=== PATIENT | female | born 1950 | race Caucasian/White ===

== ENCOUNTER 2017-11-13 11:47 | Emergency (ER) | payer OTHER ==
[2017-11-13 11:58] VITALS: BP 160/81
--- NOTE | 2017-11-13 12:25 | EDM.PDOCBH ---
ED HPI GENERAL MEDICAL PROBLEM - General Chief Complaint: Behavioral/Psych Stated Complaint: SHOCK FROM SONS Time Seen by Provider: 11/13/17 12:00 Source of Information: Reports: Patient, Family History Limitations: Reports: Altered Mental Status - History of Present Illness INITIAL COMMENTS - FREE TEXT/NARRATIVE: Patient is a 67-year-old female who was brought into the E.D. by her family because they are concerned she is having a stroke. Patient's son committed suicide this morning approx. 2 hrs ago. Patient was notified and since then has been repeating questions unaware of what happened to son. She has had no focal neurological deficits. Ambulated to the E.D. with no issues. She has history of anxiety and HTN. Anxiety started after mother . Patient has discontinued all anxiety medications. Do not have Unknown medications she is taking at this time. She has no history of CVA or heart issues. Their is a family history of dementia mother in her 70's. PCP is from [facility]. - Related Data Allergies Allergy/AdvReac Type Severity Reaction Status Date / Time morphine Allergy Other Verified 11/13/17 11:54 povidone-iodine Allergy Other Verified 11/13/17 11:54 [From Betadine] soap [From Betadine] Allergy Other Verified 11/13/17 11:54 Ngtjnvz-Qxb-Tuu Reductase Allergy Other Verified 11/13/17 11:54 Inhibitor Home Meds: Home Meds LORazepam [Ativan] 0.5 mg PO Q8H PRN #21 tab 11/13/17 [Rx] ED ROS GENERAL - Review of Systems Review Of Systems: See Below HEENT: Reports: No Symptoms Respiratory: Reports: No Symptoms Cardiovascular: Reports: No Symptoms GI/Abdominal: Reports: No Symptoms Neurological: Reports: Confusion. Denies: Dizziness, Headache, Numbness, Syncope, Tingling, Trouble Speaking, Change in Speech Psychiatric: Reports: Confusion ED EXAM, BEHAVIORAL HEALTH - Physical Exam Exam: See Below Exam Limited By: Altered Mental Status General Appearance: Alert, WD/WN, Other (Tearful) Eye Exam: Bilateral Eye: EOMI, PERRL Ears: Hearing Grossly Normal Nose: Normal Inspection, Normal Mucosa, No Blood Throat/Mouth: Normal Inspection, Normal Oropharynx, Normal Voice, No Airway Compromise Head: Atraumatic, Normocephalic Neck: Normal Inspection, Supple, Non-Tender, Full Range of Motion Respiratory/Chest: No Respiratory Distress, Lungs Clear, Normal Breath Sounds, No Accessory Muscle Use Cardiovascular: Normal Peripheral Pulses, Regular Rate, Rhythm GI/Abdominal: Normal Bowel Sounds, Soft, Non-Tender, No Organomegaly Extremities: Normal Inspection, Non-Tender, No Pedal Edema Neurological: Alert, CN II-XII Intact, Normal Cognition, No Motor/Sensory Deficits, Oriented x 3 Psychiatric: Alert, Normal Cognition, Oriented, Tearful, Other (Patient repeatedly asking questions about son. ). No: Threatening Behavior Skin Exam: Warm, Dry, Intact, Normal color COURSE, BEHAVIORAL HEALTH COMP - Course Vital Signs: Last Vital Signs Temp 98.1 F 11/13/17 11:55 Pulse 73 11/13/17 11:55 Resp BP 160/81 H 11/13/17 11:55 Pulse Ox 96 11/13/17 11:55 Orders, Labs, Meds: Active Orders 24 hr Category Date Time Status EKG Documentation Completion [RC] STAT Care 11/13/17 12:14 Active Laboratory Tests 11/13/17 11/13/17 Range/Units 12:40 12:40 WBC 10.99 H (3.98-10.04) K/mm3 RBC 4.98 (3.98-5.22) M/mm3 Hgb 14.3 (11.2-15.7) gm/L Hct 42.0 (34.1-44.9) % MCV 84.3 (79.4-94.8) fl MCH 28.7 (25.6-32.2) pg MCHC 34.0 (32.2-35.5) g/dl RDW Std Deviation 40.3 (36.4-46.3) fL Plt Count 322 (182-369) K/mm3 MPV 9.1 L (9.4-12.3) fl Neut % (Auto) 81.8 H (34.0-71.1) % Lymph % (Auto) 12.2 L (19.3-51.7) % [place] % (Auto) 5.5 (4.7-12.5) % Eos % (Auto) 0.2 L (0.7-5.8) Baso % (Auto) 0.1 (0.1-1.2) % Neut # (Auto) 9.00 H (1.56-6.13) K/mm3 Lymph # (Auto) 1.34 (1.18-3.74) K/mm3 Charlotte # (Auto) 0.60 H (0.24-0.36) K/mm3 Eos # (Auto) 0.02 L (0.04-0.36) K/mm3 Baso # (Auto) 0.01 (0.01-0.08) K/mm3 Sodium 143 (136-145) mEq/L Potassium 4.1 (3.5-5.1) mEq/L Chloride 107 (98-107) mEq/L Carbon Dioxide 24 (21-32) mEq/L Anion Gap 16.1 H (5-15) BUN 16 (7-18) mg/dL Creatinine 0.9 (0.55-1.02) mg/dL Est Cr Clr Drug Dosing 57.37 mL/min Estimated GFR (MDRD) > 60 (>60) mL/min BUN/Creatinine Ratio 17.8 (14-18) Glucose 118 H (80-115) mg/dL Calcium 9.0 (8.5-10.1) mg/dL Total Bilirubin 0.7 (0.2-1.0) mg/dL AST 28 (15-37) U/L ALT 30 (14-59) U/L Alkaline Phosphatase 64 (46-116) U/L Total Protein 6.8 (6.4-8.2) g/dl Albumin 3.4 (3.4-5.0) g/dl Globulin 3.4 gm/dL Albumin/Globulin Ratio 1.0 (1-2) TSH 3rd Generation 0.642 (0.358-3.74) uIU/mL Medications Discontinued Medications Generic Name Dose Route Start Last Admin Trade Name Freq PRN Reason Stop Dose Admin Lorazepam 0.5 mg 11/13/17 12:28 11/13/17 12:53 Ativan PO 11/13/17 12:29 0.5 mg ONETIME ONE Administration Lorazepam 1 mg 11/13/17 14:33 11/13/17 14:53 Ativan PO 11/13/17 14:34 1 mg ONETIME ONE Administration Re-Assessment/Re-Exam: Family concerned about a stroke. Will obtain CBC, chem 14, urine drug tox, TSH, UA, EKG, and head CT without contrast. [address] Carter associate professor of automation telepsych provider. Suggested administering Ativan. This may relax the patient improving the catatonic state. Normal response to stressful event as such. Labs reviewed: CBC essentially normal. Chemistry panel did not revealing concerning findings. TSH 0.6.2. CT of the head impression: Incidental findings. Nothing acute is identified on noncontrast head CT exam. 1315 Reassessment, per family members present patient appears to be more settled down. Still asking repetitive questions in relation to her son. Will give it some time to see how she does here. She will have family members present at home to monitor. 1434 Per nursing staff patient slept for 5 minutes. Has eaten and gone to the bathroom with no difficulties. NO ua obtained. Per family patients mentation is improving. Still has moments when she reverts back to questioning what happen to her son. Will administer additional 1mg PO of ativan and get patient ready for discharge. Discharge instructions as documented. Departure - Departure Time of Disposition: 14:36 Disposition: Home, Self-Care 01 Condition: Good Clinical Impression: Grief at loss of child, Catatonic reaction - Discharge Information Prescriptions: LORazepam [Ativan] 0.5 mg PO Q8H PRN #21 tab PRN Reason: Anxiety Instructions: Complicated Grieving, Adjustment Disorder, Adult Referrals: Trevon Cortés Jr, MD [Primary Care Provider] - Forms: ED Department Discharge Additional Instructions: Take lorazepam 0.5 mg 3 times a day as needed for increasing anxiety. Do not drive today nor while taking the lorazepam. Please follow up with your primary care provider this week or the following week to discuss options for treatment of anxiety and depression if symptoms persist. The grieving pattern is different for everybody and I cannot determine what the next few days will bring. Please return to the E.D. if you should have any new or worsening symptoms. - My Orders Last 24 Hours: My Active Orders 11/13/17 12:14 EKG Documentation Completion [RC] STAT - Assessment/Plan Last 24 Hours: My Active Orders 11/13/17 12:14 EKG Documentation Completion [RC] STAT
[2017-11-13] MEDS ORDERED: LORazepam 0.5 MG Tab PO ONE (12:28)
--- NOTE | 2017-11-13 12:54 | CT ---
Head CT Technique: Multiple axial sections through the brain were obtained. Intravenous contrast was not utilized. Comparison: No previous intracranial imaging. Findings: Slightly prominent cisterna magna is seen which is a normal variant. Ventricles along with basal cisterns and sulci over the convexities are mildly prominent. No abnormal parenchymal densities are seen. No evidence of intracranial hemorrhage. No midline shift or mass effect is seen. Bone window settings were reviewed which show no discrete calvarial abnormality. Visualized sinuses are clear. Impression: 1. Incidental findings. Nothing acute is identified on noncontrast head CT exam. Diagnostic code #2
[2017-11-13] MEDS ORDERED: LORazepam 1 MG Tab PO ONE (14:33)
== END 2017-11-13 15:05 | disposition home or self-care (01) ==
LOC: JD.ED 11:47
DX: F43.21 Adjustment disorder with depressed mood (principal); I10 Essential (primary) hypertension; F41.9 Anxiety disorder, unspecified; Z88.5 Allergy status to narcotic agent; Z88.8 Allergy status to other drugs, medicaments and biological substances; Z91.09 Other allergy status, other than to drugs and biological substances
CPT/HCPCS: 36415; 70450; 80053; 84443; 85025; 93005; 99284; A9270

== ENCOUNTER 2018-09-16 14:28 | Emergency (ER) | payer OTHER, MEDICARE ==
[2018-09-16 14:54] VITALS: BP 177/84
[2018-09-16] MEDS ORDERED: LORazepam 2 MG/ML SDV IM ONE (15:26)
--- NOTE | 2018-09-16 15:32 | EDM.PDOCBH ---
ED HPI GENERAL MEDICAL PROBLEM - General Chief Complaint: Neurological Problem Stated Complaint: LOSS OF MEMORY Time Seen by Provider: 09/16/18 15:05 Source of Information: Reports: Patient, RN Notes Reviewed History Limitations: Reports: No Limitations - History of Present Illness INITIAL COMMENTS - FREE TEXT/NARRATIVE: Patient is a 68 year old female who presents with family members to the ED for the evaluation of acute memory loss. The son and stated that she awoke fine this AM and around 2pm she started having acute memory loss and was questioning where things come from; i.e towels on the floor. She did not have any unilateral symptoms like weakness or speech impairment. It was divulged that the patient's son killed himself in October 2017 and she presented to the ED in shock with some of the same symptoms. She has been on antidepressants but they do not have a current med list. - Related Data Allergies Allergy/AdvReac Type Severity Reaction Status Date / Time morphine Allergy Other Verified 09/16/18 16:12 povidone-iodine Allergy Other Verified 09/16/18 16:12 [From Betadine] soap [From Betadine] Allergy Other Verified 09/16/18 16:12 Stngocd-Fec-Wpn Reductase Allergy Other Verified 09/16/18 16:12 Inhibitor Home Meds: Home Meds LORazepam [Ativan] 0.5 mg PO Q8H PRN #21 tab 11/13/17 [Rx] LORazepam [Ativan] 0.5 mg PO Q6H PRN #24 tablet 09/16/18 [Rx] Past Medical History - Past Health History Medical/Surgical History: Denies Medical/Surgical History HEENT History: Reports: Impaired Vision Other HEENT History: wears glasses Psychiatric History: Reports: Other (See Below) Other Psychiatric History: grief Social & Family History - Tobacco Use Smoking Status *Q: Never Smoker - Caffeine Use Caffeine Use: Reports: Coffee - Recreational Drug Use Recreational Drug Use: No ED ROS GENERAL - Review of Systems Review Of Systems: See Below Constitutional: Reports: No Symptoms HEENT: Reports: No Symptoms Respiratory: Reports: No Symptoms Cardiovascular: Reports: No Symptoms Endocrine: Reports: No Symptoms GI/Abdominal: Reports: No Symptoms : Reports: No Symptoms Musculoskeletal: Reports: No Symptoms Skin: Reports: No Symptoms Neurological: Reports: Other (memory loss). Denies: Confusion, Headache, Numbness, Tingling, Trouble Speaking, Difficulty Walking, Weakness, Change in Speech Psychiatric: Reports: No Symptoms Hematologic/Lymphatic: Reports: No Symptoms Immunologic: Reports: No Symptoms ED EXAM, BEHAVIORAL HEALTH - Physical Exam Exam: See Below Exam Limited By: No Limitations General Appearance: Alert, WD/WN, No Apparent Distress (patient is crying at bedside and throughout exam, although not uncontrollably.) Ears: Normal External Exam Nose: Normal Inspection Throat/Mouth: Normal Inspection Head: Atraumatic, Normocephalic Neck: Normal Inspection Respiratory/Chest: No Respiratory Distress, Lungs Clear, Normal Breath Sounds, No Accessory Muscle Use, Chest Non-Tender Cardiovascular: Normal Peripheral Pulses, Regular Rate, Rhythm, No Murmur GI/Abdominal: Normal Bowel Sounds, Soft, Non-Tender, No Distention Extremities: Normal Inspection Neurological: Alert (she is alert to place and person), Normal Mood/Affect, Normal Cognition, Normal Gait, Normal Reflexes, No Motor/Sensory Deficits, Disoriented to Time (she did not know what day it was or Date) Psychiatric: Alert, Normal Affect, Normal Cognition, Normal Mood, Oriented, Tearful Skin Exam: Warm, Dry, Intact COURSE, BEHAVIORAL HEALTH COMP - Course Vital Signs: Last Vital Signs Temp 97.4 F 09/16/18 14:47 Pulse 73 09/16/18 14:47 Resp 20 09/16/18 14:47 BP 177/84 H 09/16/18 14:47 Pulse Ox 95 09/16/18 14:47 Orders, Labs, Meds: Medications Discontinued Medications Generic Name Dose Route Start Last Admin Trade Name Jaysonq PRN Reason Stop Dose Admin Lorazepam 0.5 mg 09/16/18 15:26 09/16/18 15:36 Ativan IM 09/16/18 15:27 0.5 mg ONETIME ONE Administration Re-Assessment/Re-Exam: 09/16/2018 15:30 Pt presents to the ED for acute memory loss. Her neuro exam is benign, the patient is quite tearful and has become increasingly aware of more of the things she was forgetting. It appears that this may be an acute stress reaction to the realization of a lost loved one during the holiday season. 0.5mg IM ativan has been ordered to see if this helps calm her nerves. 09/16/2018 16:14 Pt reassessed at bedside, she is feeling much better, will provide her with script for 0.5 mg ativan to take as needed for feelings of increased anxiety. Departure - Departure Time of Disposition: 16:16 Disposition: Home, Self-Care 01 Condition: Fair Clinical Impression: Acute stress reaction - Discharge Information *PRESCRIPTION DRUG MONITORING PROGRAM REVIEWED*: No *COPY OF PRESCRIPTION DRUG MONITORING REPORT IN PATIENT NENA: No Prescriptions: LORazepam [Ativan] 0.5 mg PO Q6H PRN #24 tablet PRN Reason: Anxiety Instructions: Panic Attack, [id number] Referrals: Trevon Cortés Jr, MD [Primary Care Provider] - Forms: ED Department Discharge Additional Instructions: You have been evaluated in the ED for episodes of memory loss. Your neurological exam was unremarkable. You are not having a stroke at this ED visit. This is likely to be due to an acute stress reaction to the loss of a loved one during the holidays. You have been provided a script for 0.5 mg Ativan, please take 1 tab by mouth as needed for feelings of anxiety. Please follow up with your primary care provider for further management of anxiety medications. Please return to the ED if your symptoms should change or worsen.
== END 2018-09-16 16:23 | disposition home or self-care (01) ==
LOC: JD.ED 14:28
DX: F43.0 Acute stress reaction (principal); Z88.5 Allergy status to narcotic agent; Z91.09 Other allergy status, other than to drugs and biological substances
CPT/HCPCS: 96372; 99283; J2060

== ENCOUNTER 2021-05-10 09:25 | Day surgery (SDC) | payer MEDICARE, BC ==
[~2021-05-10 09:25] MED LIST: Cyclobenzaprine 10 MG Tab PO PRN; Lactated Ringers 1,000 ML IV SCH; Lidocaine 1%/Sod Bicarbonate in NS 8.4% 1 ML Syringe IDERM PRN; Sodium Chloride 0.9% 10 ML Syringe FLUSH PRN
[2021-05-10] MEDS ORDERED: Scopolamine 1.5 MG Transdermal Patch TOP ONE (10:56)
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
[2021-05-10] MEDS ORDERED: Bupivacaine 0.25% 10 ML SDV ONE ×2 (11:44→12:22)
[2021-05-10] MEDS ORDERED: Midazolam 1 MG/ML 2 ML SDV ONE (12:02)
[2021-05-10] MEDS ORDERED: Propofol 200 MG/20 ML SDV ONE ×2 (12:02→12:36)
[2021-05-10] MEDS ORDERED: fentaNYL 250 MCG/5 ML SDV ONE (12:02)
[2021-05-10] MEDS ORDERED: ceFAZolin 1 GM Vial ONE (12:07)
[2021-05-10] MEDS ORDERED: Lidocaine 1% 4 ML ONE ×2 (12:07→12:46)
[2021-05-10] MEDS ORDERED: Dexamethasone 4 MG/ML 5 ML MDV ONE (12:34)
[2021-05-10] MEDS ORDERED: Ondansetron 4 MG/2 ML SDV ONE (12:34)
[2021-05-10] MEDS ORDERED: Lactated Ringers 1,000 ML ONE (12:59)
[2021-05-10] MEDS ORDERED: fentaNYL 100 MCG/2 ML SDV IVPUSH PRN (13:19)
[2021-05-10] MEDS ORDERED: Ondansetron 4 MG/2 ML SDV IVPUSH PRN ×2 (13:19→16:42)
[2021-05-10] MEDS ORDERED: HYDROmorphone 0.5 MG/0.5 ML Syringe IVPUSH PRN (13:19)
[2021-05-10] MEDS ORDERED: Ketorolac 15 MG/ML SDV ONE (13:58)
[2021-05-10] MEDS ORDERED: Meperidine 50 MG/ML Vial IVPUSH STA (14:02)
--- NOTE | 2021-05-10 14:03 | CR ---
Right ankle: 7 fluoroscopic spot views were obtained of the right ankle. Plate and screws are seen within the distal fibula. Medial malleolus fracture is noted which shows fixation with 2 screws. Fluoroscopy time given is 14.9 seconds. Impression: 1. Procedural study as described above. Diagnostic code #2
--- NOTE | 2021-05-10 14:08 | PCM.POSTAN ---
POST ANESTHESIA ASSESSMENT - MENTAL STATUS Mental Status: Alert, Oriented - VITAL SIGNS Vital Signs: Last Vital Signs Temp 97.0 F 05/10/21 13:50 Pulse 79 05/10/21 13:50 Resp 17 05/10/21 13:50 BP 151/76 H 05/10/21 13:50 Pulse Ox 95 05/10/21 14:05 - RESPIRATORY Respiratory Status: Respiratory Rate WNL, Airway Patent, O2 Saturation Stable - CARDIOVASCULAR CV Status: Pulse Rate WNL, Blood Pressure Stable - GASTROINTESTINAL GI Status: No Symptoms - PAIN Pain Score: 0 - POST OP HYDRATION Hydration Status: Adequate & Stable
--- NOTE | 2021-05-10 14:48 | PCM48HPAN ---
Post Anesthesia Note - EVALUATION WITHIN 48HRS OF ANESTHETIC Vital Signs in Normal Range: Yes Patient Participated in Evaluation: Yes Respiratory Function Stable: Yes Airway Patent: Yes Cardiovascular Function Stable: Yes Hydration Status Stable: Yes Pain Control Satisfactory: Yes Nausea and Vomiting Control Satisfactory: Yes Mental Status Recovered: Yes Vital Signs: Last Vital Signs Temp 98.2 F 05/10/21 14:35 Pulse 68 05/10/21 14:35 Resp 16 05/10/21 14:35 BP 166/93 H 05/10/21 14:35 Pulse Ox 96 05/10/21 14:35 - COMMENTS/OBSERVATIONS Free Text/Narrative:: complains of some pain. denies nausea.
[2021-05-10] MEDS ORDERED: Acetaminophen/HYDROcodone 325-5 MG Tab PO PRN (14:51)
[2021-05-10] MEDS ORDERED: Ketorolac 15 MG/ML SDV IVPUSH STA (16:07)
[2021-05-10] MEDS ORDERED: Acetaminophen/HYDROcodone 325-5 MG Tab PO STA (16:07)
[2021-05-10] MEDS ORDERED: Naloxone 0.4 MG/ML SDV IVPUSH PRN (16:42)
[2021-05-10] MEDS: Acetaminophen/HYDROcodone 325-5 MG Tab PO PRN (21:59)
[2021-05-11] MEDS: Cyclobenzaprine 10 MG Tab PO PRN ×2 (00:44→10:05)
[2021-05-11] MEDS ORDERED: Levothyroxine 88 MCG Tab PO SCH (06:00)
[2021-05-11] MEDS: Acetaminophen/HYDROcodone 325-5 MG Tab PO PRN (07:03)
[2021-05-11] MEDS ORDERED: Losartan 50 MG Tab PO SCH (09:00)
[2021-05-11] MEDS ORDERED: Ezetimibe 10 MG Tab PO SCH (09:00)
[2021-05-11] MEDS ORDERED: Metoprolol Succinate 25 MG Tab.ER PO SCH (09:00)
[2021-05-11 09:47] VITALS: BP 122/47; PULSE 72
--- NOTE | 2021-05-25 06:57 | PCM.OPNOTE ---
- General Post-Op/Procedure Note Date of Surgery/Procedure: 05/10/21 Operative Procedure(s): open reduction internal fixation right bimalleolar ankle fracture Pre Op Diagnosis: right bimalleolar ankle fracture Post-Op Diagnosis: Same Anesthesia Technique: General LMA, Local Primary Surgeon: Abran Greene Anesthesia Provider: Lizabeth Burrell Roguer: Merline Fierro in mLs: 5 Complications: None Condition: Good
--- NOTE | 2021-05-25 10:36 | OR ---
DATE OF OPERATION: 05/10/2021 SURGEON: Abran Greene MD OPERATION PERFORMED: Open reduction, internal fixation right bimalleolar ankle fracture. PREOPERATIVE DIAGNOSIS: Right bimalleolar ankle fracture. POSTOPERATIVE DIAGNOSIS: Right bimalleolar ankle fracture. ANESTHESIA: General LMA with local and ankle block. ANESTHESIA PROVIDER: Lizabeth Burrell CRNA. FACILITY SERVICE MANAGER: Merline Fierro PA-C. ESTIMATED BLOOD LOSS: 5 mL. COMPLICATIONS: None. CONDITION: Stable. DESCRIPTION OF PROCEDURE: The patient was identified in the preoperative holding area. Proper site was marked and identified by the surgeon. The patient was taken back to the operating theater where after adequate anesthesia, the patient's right lower extremity was sterilely prepped and draped in the usual sterile fashion. OR time-out was performed. The patient received 2 g of IV Ancef. Right lower extremity was then exsanguinated, inflated to 225 mmHg. A standard lateral incision was made. This was taken down to the fracture site. Fracture site was curetted and rongeured of all fracture hematoma and adequately irrigated with saline. [id number] reduction clamp was used for reduction of the fracture. A 3.5 lag screw was then used from anterior to posterior and had adequate fixation of the fracture site. A Ashley distal fibular locking plate was then placed under direct C-arm fluoroscopy, shown to be adequate position. A cortical screw was then placed proximally and distally to the fracture to hold it in place and then locking and nonlocking screws were then placed proximally and distally to the fracture site making sure to obtain 6 cortices. At this time, attention was turned medially. Incision was made medially. Neurovascular bundle was then retracted anteriorly. Fracture site was identified and all fracture hematoma as well as periosteum was taken out of the fracture site. [id number] reduction clamp was then used for reduction of the fracture. Two guide pins for 4.0 cannulated screws were placed. It was found to be anatomically reduced on AP and lateral views and mortise views under C-arm fluoroscopy. The drill was then used and two 4-0 cannulated screws were placed medially. We had anatomic reduction of the mortise. Stress view showed no widening of the ankle mortise. The previous pins were removed. Adequate saline was irrigated through both wounds. 2-0 Vicryl was used subcutaneously and slick were used for closure of the skin. The patient was placed in a sterile soft dressing and posterior slab splint, and sent to the PACU in stable condition. WAYLON /[id number]
== END 2021-05-11 10:45 | disposition home or self-care (01) ==
LOC: JD.SDS 09:25 → JD.MS 17:50 → JD.SDS 05-11 10:45
PROVIDERS: ATTEND Orthopaedic Surgery
DX: S82.841A Displaced bimalleolar fracture of right lower leg, initial encounter for closed fracture (principal); I10 Essential (primary) hypertension; E03.9 Hypothyroidism, unspecified; K58.9 Irritable bowel syndrome, unspecified; E78.00 Pure hypercholesterolemia, unspecified; E66.9 Obesity, unspecified; Z88.8 Allergy status to other drugs, medicaments and biological substances; Z88.5 Allergy status to narcotic agent; Z79.899 Other long term (current) drug therapy; Z79.890 Hormone replacement therapy; Z20.822 Contact with and (suspected) exposure to COVID-19
CPT/HCPCS: 27814; 76000; A9270; C1713; C1769; C1776; J0690; J1100; J1885; J2250; J2405; J2704; J3010; J3490; J7120; 01480; 99100

== ENCOUNTER 2022-05-01 08:56 | Emergency (ER) | payer MEDICARE, OTHER ==
[2022-05-01] MEDS ORDERED: Sodium Chloride 0.9% 10 ML Syringe FLUSH PRN (09:20)
[2022-05-01] MEDS ORDERED: methylPREDNISolone Sodium Succinate 125 MG/2 ML SDV IVPUSH PRN (09:21)
[2022-05-01] MEDS ORDERED: Famotidine 20 MG/2 ML SDV IVPUSH PRN (09:21)
[2022-05-01] MEDS ORDERED: EPINEPHrine 1 MG/ML SDV IM PRN (09:21)
[2022-05-01] MEDS ORDERED: diphenhydrAMINE 50 MG/ML SDV IVPUSH PRN (09:21)
[2022-05-01] MEDS ORDERED: Sodium Chloride 0.9% 10 ML Syringe FLUSH SCH (09:30)
[2022-05-01 10:21] VITALS: BP 148/67; PULSE 58
== END 2022-05-01 10:50 | disposition home or self-care (01) ==
LOC: JD.ED 08:56
DX: U07.1 COVID-19 (principal); I10 Essential (primary) hypertension; E66.9 Obesity, unspecified; Z68.30 Body mass index [BMI] 30.0-30.9, adult; Z88.6 Allergy status to analgesic agent; Z91.041 Radiographic dye allergy status; Z91.048 Other nonmedicinal substance allergy status; Z79.899 Other long term (current) drug therapy; Z79.82 Long term (current) use of aspirin; Z86.16 Personal history of COVID-19; Z90.710 Acquired absence of both cervix and uterus
CPT/HCPCS: 99283; M0222; Q0222; 99284